=== PATIENT | female | born 1955 | race African-American/Black ===

== ENCOUNTER → 2018-03-22 | Outpatient (CLI) | payer OTHER, BC ==
[~2018-03-22] MED LIST: ALPRAZOLAM 0.50.5 MG; AMLODIPINE BESY10 MG; CARVEDILOL12.5 MG PO; CETIRIZINE HCL5 MG PO; COZAAR 25 MG TA25 M1 PO; CYCLOBENZAPRINE10 MG; FUROSEMIDE 40 M40 M1; GLUCOPHAGE500 MG; KEFLEX500 M1 PO; MEDROLDOSEPACK PO; METOLAZONE 5 MG5 M1; NAPROSYN500 MG PO; NORCO 5-325 TA1 EACH PO; OMEPRAZOLE40 MG; OXYCONTIN10 M1 PO; PHENTERMINE H37.5 MG; POTASSIUM20; POTASSIUM20 PO; QNASL8.7 GM; SINGULAIR 10 MG10 M1 PO; SYMBICORT160 MCG/4.; VENTOLIN HFA 1818 GM; VOLTAREN GEL 1100 G1; ZYRTEC10 M2
--- NOTE | 2018-04-02 04:27 | SLE ---
[facility] [place] [address] POLYSOMNOGRAPHY STUDY Name: STACIE VARGAS Room #: REG [facility]#: [id number] Admission: 03/22/18 Attend Phys: Byron Purvis MD Discharge: Date of : 57 Report #: [id number] THIS REPORT FOR: //name// CC: Byron Ricks MD DATE OF SERVICE: 03/22/2018 ATTENDING PHYSICIAN: Dr. Eduard Ricks. The patient is 62 years old, who weighs 220 pounds with a BMI of 36.6. The patient's Hastings score was 14. The patient underwent split night study at [facility]. During the night of study, the patient spent 462 minutes in bed and slept for 419 minutes with a sleep efficiency of 91%. Sleep latency was 5.2 minutes with a REM latency of 55.7 minutes. Overall, sleep architecture showed normal stage 1 sleep, increased stage 2 sleep, absent N3 sleep and slightly reduced REM sleep, which was 15% of the total sleep time. During the initial diagnostic portion of the study, the patient spent 212 minutes in bed and slept for 193 minutes. During that time, there were 5 obstructive apneas, no mixed or central apneas. There were 108 hypopneas. The patient's apnea-hypopnea index was 35 per hour with a REM index of 65 per hour and a supine index of 35 per hour. EKG monitoring revealed an average heart rate of 62 beats per minute with a maximum 84 beats per minute, no sustained arrhythmias observed. No clinically significant PLMS observed. Nocturnal oximetry study revealed an average oxygen saturation 93% with a lowest of 81%. 17 minutes were spent in oxygen saturation of less than 89%. The patient met the criteria for a split night study. The patient was started on CPAP at 5 cm water and titrated up to 9 cm water. At the final pressure, the patient slept for 113 minutes. The patient in supine as well as REM sleep. The patient's AHI was reduced to 3.7 per hour and oxygen saturations remained above 90%. IMPRESSION: 1. Severe sleep apnea-hypopnea syndrome at an AHI of 35 per hour with a REM AHI of 65 per hour. 2. Nocturnal hypoxia secondary to obstructive sleep apnea, but resolved with CPAP. [facility] [address] [place] [address] POLYSOMNOGRAPHY STUDY Name: LILIBETH DIEGO HUDDLESTONH Room #: REG [facility].#: [id number] Admission: 03/22/18 Attend Phys: Byron Purvis MD Discharge: Date of : 57 Report #: [id number] 3. No clinically significant periodic limb movements. RECOMMENDATIONS: 1. CPAP at 9 cm water completely eliminated the patient's sleep apnea and should be used on a nightly basis. 2. Follow up in 4-6 weeks to assess compliance with CPAP and to document clinical improvement. 3. Weight loss is strongly advised. 4. Avoid FLOORLEADER depressants. 5. Cautioned regarding driving until symptoms of sleep apnea resolve with the use of CPAP. <ELECTRONICALLY SIGNED> By: Byron Purvis MD 04/02/18 [id number] Byron Purvis MD /nt
== END ==
LOC: SLEEPLAB 10:22
DX: G47.33 Obstructive sleep apnea (adult) (pediatric) (principal); R09.02 Hypoxemia

== ENCOUNTER 2020-01-17 22:23 | Emergency (ER) | payer OTHER, BC ==
[~2020-01-17] VITALS: Ht 165.1 cm; Wt 108.4 kg
[2020-01-17] MEDS ORDERED: ASA81BEC PO (22:31)
[2020-01-17] MEDS ORDERED: CELEXA10 MG PO (22:31)
[2020-01-17] MEDS ORDERED: VITAMIN D310 MC2 PO (22:31)
[2020-01-17 23:12] VITALS: BP 165/85
== END 2020-01-17 23:12 | disposition home or self-care (01) ==
LOC: ER 22:23
DX: S61.412A Laceration without foreign body of left hand, initial encounter (principal); I10 Essential (primary) hypertension; J45.909 Unspecified asthma, uncomplicated; Z79.899 Other long term (current) drug therapy; Z88.2 Allergy status to sulfonamides; Z88.1 Allergy status to other antibiotic agents; Z91.048 Other nonmedicinal substance allergy status; W26.0XXA Contact with knife, initial encounter; Y93.89 Activity, other specified; Y92.89 Other specified places as the place of occurrence of the external cause; Y99.8 Other external cause status